=== PATIENT | female | born 1965 | race Caucasian/White ===

== ENCOUNTER 2020-09-23 12:24 | Emergency (ER) | payer OTHER, SELFPAY ==
--- NOTE | ~2020-09-23 | XR_ITS ---
XR knee LT 3V DATE: 09/23/2020 12:48 INDICATION: Left knee pain posteriorly following twisting injury TECHNIQUE: 3 views COMPARISON: None FINDINGS: No fracture or dislocation or joint effusion. Small benign fibrous cortical defect at the d istal lateral femoral metaphysis. No periosteal reaction or any significant bone destruction is noted . Joint spaces are well preserved. No radiopaque intra-articular loose body or chondrocalcinosis. IMPRESSION: No significant abnormality Reviewed, dictated and finalized at location A. 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
[2020-09-23 12:26] VITALS: BP 146/107; PULSE 105; RESP 20; TEMP 36.1; O2SAT 99
--- NOTE | 2020-09-23 12:30 | ED.LOWEXIN ---
HPI - Extremity Injury (Lower) General Chief Complaint: Extremity Injury, Lower Stated Complaint: knee pain Time Seen by Provider: 09/23/20 12:30 History of Present Illness HPI Narrative: 54 yo female presents to the ED for knee pain. She was walking when she felt/heard a pop in the left knee and suddenly had severe pain. The pain is worse with bearing weight or bending the knee. She has not taken anything for the pain. No previous injury. Related Data Allergies Allergy/AdvReac Type Severity Reaction Status Date / Time iodine Allergy Unknown Rash Verified 09/23/20 13:30 No Known Allergies Allergy Unknown Verified 09/23/20 13:30 Review of Systems Review of Systems: All systems reviewed & are unremarkable except as noted in HPI and below Constitutional: Constitutional: Denies fever(s) and Denies weakness PMFSH Past Medical History Medical History Multinodular goiter Family History Family History Other Depression Family history of pancreatic cancer Family history of seizure disorder Social History Social History Smoking status: Never smoker Second hand tobacco smoke exposure: No Alcohol intake: former Substance use: never Substance use type: does not use Gender identity (if verbalized by the patient): Female Exam Const: General: healthy appearing, no acute distress and alert Orientation/consciousness: patient oriented x3 HENMT: Head: normal to inspection Resp: Effort & Inspection: normal respiratory effort Cardio: Other: 2+ left DP Skin: General skin exam: normal color Wounds: no wounds Neuro: General: patient oriented x3, moves all extremities and no focal motor deficits Speech: normal speech Other: Normal strength Extrem: Other: Tenderness to superior portion of the left patella. Full ROM in left knee with some pain on flexion. Course Vital Signs Vital signs: Vital Signs Temperature 36.1 C L 09/23/20 12:26 Pulse Rate 105 H 09/23/20 12:26 Respiratory Rate 20 09/23/20 12:26 Blood Pressure 146/107 H 09/23/20 12:26 Pulse Oximetry 99 09/23/20 12:26 Temperature 36.1 C L 09/23/20 12:26 Pulse Rate 105 H 09/23/20 12:26 Respiratory Rate 20 09/23/20 12:26 Blood Pressure 146/107 H 09/23/20 12:26 Pulse Oximetry 99 09/23/20 12:26 MDM - Extremity Injury (Lower) Differential Diagnosis Differential diagnosis: Likely acute internal derangement of knee and other (Sprain, meniscal tear, fracture) Imaging Data Radiologist's impression: ITS Impressions Knee X-Ray 09/23/20 13:01 IMPRESSION: No significant abnormality Discharge Plan Discharge Clinical Impression: Acute pain of left knee Patient Disposition: Home, Self-Care Condition: Stable Instructions: Knee Pain (ED) Prescriptions: No Action pravastatin 20 mg tablet 20 mg PO DAILY Qty: 90 RF: 2 lansoprazole 30 mg capsule,delayed release(DR/EC) 30 mg PO DAILY Qty: 90 RF: 2 trazodone 50 mg tablet 25 mg PO QPM Qty: 30 RF: 0 Follow-up/Referrals: Paul Cisneros MD [Primary Care Provider] -
== END 2020-09-23 14:21 | disposition home or self-care (01) ==
PROVIDERS: Emergency Provider Emergency Medicine; PCP Family Medicine
DX: M25.562 Pain in left knee (principal); E04.2 Nontoxic multinodular goiter
CPT/HCPCS: 73562; 99283

== ENCOUNTER 2024-03-29 13:50 | Outpatient (CLI) | payer BC, SELFPAY ==
--- NOTE | ~2024-03-29 | MM_ITS ---
EXAMINATION: MM screening elizabeth BI w kael HISTORY: Screening TECHNIQUE: Craniocaudal and mediolateral oblique 3-D tomosynthesis images were obtained and synthetic 2-D images were generated. CAD analysis was submitted and interpreted. COMPARISON: Comparison to multiple prior studies sequentially, with oldest reviewed study dated 09/11. BREAST PARENCHYMAL COMPOSITION: Not dense: There are scattered areas of fibroglandular density. FINDINGS: There is no evidence of suspicious mass, calcification, or architectural distortion to sugg est malignancy in either breast. There has been no suspicious interval change. IMPRESSION: 1. No mammographic evidence of malignancy. 2. Recommend routine screening mammography in one year. BI-RADS Category 1: Negative Reviewed, dictated and finalized at location B.
== END 2024-03-29 13:51 | disposition home or self-care (01) ==
LOC: MICIMG 13:51
PROVIDERS: PCP Obstetrics & Gynecology Gynecology; Visit Provider Family Medicine
DX: Z12.31 Encounter for screening mammogram for malignant neoplasm of breast (principal)
CPT/HCPCS: 77063; 77067

== ENCOUNTER 2025-04-21 11:32 | Outpatient (CLI) | payer BC, SELFPAY ==
--- NOTE | ~2025-04-21 | XR_ITS ---
EXAMINATION: XR knee LT 3V, 04/21/2025 11:36 CDT HISTORY: M25.562 - Pain in left knee COMPARISON: No comparisons available. Findings: No acute fracture or malalignment. No significant degenerative changes. Soft tissues unremarkable. Impression: No acute fracture or malalignment. Reviewed, dictated and finalized at location P. Impression: No acute fracture or malalignment.
== END 2025-04-21 11:33 | disposition home or self-care (01) ==
LOC: MICIMG 11:33
PROVIDERS: PCP Family Medicine; Visit Provider Physician Assistant Medical
DX: M25.562 Pain in left knee (principal)
CPT/HCPCS: 73562

== ENCOUNTER 2025-06-01 14:25 | Outpatient (CLI) | payer BC, SELFPAY ==
--- NOTE | ~2025-06-01 | MR_ITS ---
EXAMINATION: MR knee LT wo con DATE: 06/01/2025 15:41 INDICATION: TECHNIQUE: Magnetic resonance imaging (MRI) of the knee was performed without intravenous contrast. Sequences included axial PD-weighted FS FSE, coronal PD- weighted FSE and PD-weighted FS FSE, sagittal PD-weighted FSE, and sagittal T2- weighted FS FSE. COMPARISON: None. FINDINGS: No fracture subluxation or dislocation. Slightly edematous appearing changes present in the medial tibial plateau as can be seen on image 14 series 5. A 10 x 5 mm nonexpansile corticated, cortical based lesion is present in the posterior distal femur metaphysis along the lateral aspect with no adjacent bone marrow edema or destructive changes. Moderately severe osteophytic tricompartmental degenerative changes present. The menisci and cruciate ligaments appear intact. Trace joint effusion present. Extratracheal soft tissues including quadriceps and infrapatellar tendons appear intact. IMPRESSION: 1. Small area of mild edematous appearing changes in the medial tibial plateau may represent mild contusion or subcortical edematous changes associated with inflammation. No fracture or cortical erosive changes. 2. Moderate tricompartmental osteophytic degenerative changes with trace effusion but otherwise no acute internal derangement. 3. 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 Reviewed, dictated and finalized at location A. 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 Small area of mild edematous appearing changes in the medial tibial plateau may represent mild contusion or subcortical edematous changes associated with i nflammation. No fracture or cortical erosive changes. 2. Moderate tricompartmental osteophytic degenerative changes with trace effusi on but otherwise no acute internal derangement. 3. Incidental note of 10 mm cortical lesion probably representing benign ossifi ed fibroma.
== END 2025-06-01 14:26 | disposition home or self-care (01) ==
LOC: MICIMG 14:25
PROVIDERS: PCP Family Medicine; Visit Provider Physician Assistant Medical
DX: M85.862 Other specified disorders of bone density and structure, left lower leg (principal)
CPT/HCPCS: 73721